=== PATIENT | male | born 1985 | race Caucasian/White ===

== ENCOUNTER 2018-06-02 18:59 | Emergency (ER) | payer SELFPAY ==
--- NOTE | 2018-06-02 19:55 | RAD ---
RIGHT SHOULDER THREE VIEWS: 06/02/18 HISTORY: Shoulder pain. The AC and glenohumeral joints appear unremarkable. No fracture or dislocation. IMPRESSION: Negative right shoulder. POS: FREDDY
[2018-06-02] MEDS ORDERED: Ketorolac Tromethamine 30 MG/ML VIAL ONE (20:47)
== END 2018-06-02 21:05 | disposition home or self-care (01) ==
LOC: ERS 18:59
DX: S20.211A Contusion of right front wall of thorax, initial encounter (principal); F31.9 Bipolar disorder, unspecified; F17.210 Nicotine dependence, cigarettes, uncomplicated; W22.8XXA Striking against or struck by other objects, initial encounter
CPT/HCPCS: 96372; J1885

== ENCOUNTER 2018-09-13 08:42 | Emergency (ER) | payer SELFPAY ==
[2018-09-13 09:05] LABS: #Basophils 0.1 thou/uL (0.0-0.2); #Eosinphils 0.3 thou/uL (0.0-0.7); #Lymphocytes 2.3 thou/uL (1.20-3.40); #Monocytes 0.7 thou/uL (0.11-0.59); #Neutrophils 3.3 thou/uL (1.40-6.50); %Basophils 1.4 % (0.0-1.0); %Eosinophils 5.2 % (0.0-10.0); %Lymphocytes 34.3 % (21.0-51.0); %Monocytes 10.2 % (0.0-10.0); %Neutrophils 48.9 % (42.0-75.0); Hemoglobin 15.9 g/dL (14.0-18.0); Mean Corpuscular HGB CONC 33.8 g/dL (32.0-36.0); Mean Corpuscular Hemoglobin 32.7 pg (27.0-31.0); Mean Corpuscular Volume 96.6 fL (78.0-98.0); Mean Platelet Volume 6.7 fL (7.4-10.4); Platelet Count 213 thou/uL (130-400); RBC Distribution Width 12.2 % (11.5-14.5); Red Blood Cell (RBC) Count 4.87 mill/uL (4.70-6.10); White Blood Cell (WBC) Count 6.7 thou/uL (4.8-10.8)
[2018-09-13] MEDS ORDERED: Nitroglycerin 0.4 MG TAB (25 Tab Bottle) ONE (09:21)
[2018-09-13 09:24] LABS: ALT (SGPT) 19 U/L (8-55); AST (SGOT) 22 U/L (5-34); Albumin 5.1 g/dL (3.5-5.0); Alkaline Phosphatase 55 U/L (40-150); Anion Gap 15 mmol/L (10-20); BUN (Urea Nitrogen) 19 mg/dL (8.9-20.6); Bilirubin, Total 0.2 mg/dL (0.2-1.2); Calc. Creatinine Clearance 0 mL/min (70-130); Calcium 10.4 mg/dL (7.8-10.44); Carbon Dioxide 25 mmol/L (22-29); Chloride 98 mmol/L (98-107); Estimated GFR-MDRD Greater than 90; Globulin 3.6 g/dL (2.4-3.5); Glucose 91 mg/dL (70-105); Potassium 4.1 mmol/L (3.5-5.1); Protein, Total 8.7 g/dL (6.0-8.3); Sodium 134 mmol/L (136-145)
--- NOTE | 2018-09-13 09:28 | RAD ---
FRONTAL VIEW CHEST: COMPARISON: No prior compression. INDICATION: Chest pain. FINDINGS: There is a subtle area of reticulonodular density of the right suprahilar region. The left lung is g rossly clear. The cardiac silhouette is normal in size. No effusion or pneumothorax. IMPRESSION: Subtle reticulonodularity at the right suprahilar region. This may relate to an atypical infectious/ inflammatory focus. Recommend followup with 2 view chest to confirm resolution. CODE T POS: HALLIE
--- NOTE | 2018-09-13 10:04 | ULT ---
ULTRASOUND WITH DOPPLER DUPLEX VENOUS LOWER EXTREMITY RIGHT: CPT: 29812 ICD-10-PCS: B54D HISTORY: Right lower extremity pain. TECHNIQUE: Color flow Doppler, spectral waveform analysis of pulsed Doppler, and tubbs-scale imaging with sharif makeda and augmentation, were used to evaluate the bilateral common femoral, femoral, popliteal, completion supervisor ior tibial, and superficial femoral, veins; and the proximal portions of the profunda femoral and gre ater saphenous, veins. FINDINGS: There is appropriate compressibility and flow within the imaged deep vein system of the right lower e xtremity without evidence of DVT. IMPRESSION: No deep vein thrombosis of the imaged right lower extremity. POS: FREDDY
== END 2018-09-13 10:43 | disposition home or self-care (01) ==
LOC: ERS 08:42
DX: R07.89 Other chest pain (principal); F31.9 Bipolar disorder, unspecified; F17.210 Nicotine dependence, cigarettes, uncomplicated; Z79.899 Other long term (current) drug therapy
CPT/HCPCS: 71045; 80053; 84484; 85025; 93005

== ENCOUNTER 2019-03-25 11:21 | Emergency (ER) | payer SELFPAY ==
[2019-03-25] MEDS ORDERED: Naproxen 500 MG TAB ONE (12:24)
== END 2019-03-25 12:33 | disposition home or self-care (01) ==
LOC: ERS 11:21
DX: S39.012A Strain of muscle, fascia and tendon of lower back, initial encounter (principal); F31.9 Bipolar disorder, unspecified; F17.210 Nicotine dependence, cigarettes, uncomplicated; X50.9XXA Other and unspecified overexertion or strenuous movements or postures, initial encounter
CPT/HCPCS: 99283